=== PATIENT | female | born 2000 | race Caucasian/White ===

== ENCOUNTER 2023-05-19 13:34 | Emergency (ER) | payer MEDICAID, OTHER ==
[~2023-05-19] VITALS: Ht 152.4 cm; Wt 59.0 kg
[2023-05-19 14:27] VITALS: BP 142/70; PULSE 89; RESP 18; TEMP 98; O2SAT 98
[2023-05-19] MEDS ORDERED: KETOROLAC 30 MG/ML VIAL IM ONE (16:15)
[2023-05-19] MEDS ORDERED: IBUP-2213 PO (16:40)
== END 2023-05-19 16:57 | disposition home or self-care (01) ==
LOC: MED 13:34
DX: S93.501A Unspecified sprain of right great toe, initial encounter (principal); X58.XXXA Exposure to other specified factors, initial encounter; Y93.89 Activity, other specified; Y92.89 Other specified places as the place of occurrence of the external cause; Y99.8 Other external cause status
CPT/HCPCS: 29515; 73660; 96372; 99283; J1885